=== PATIENT | male | born 1990 | race Caucasian/White ===

== ENCOUNTER 2018-08-27 08:00 | Emergency (ER) | payer BC, OTHER ==
[~2018-08-27] VITALS: Ht 182.9 cm; Wt 86.2 kg
[~2018-08-27 08:00] MED LIST: CARB200T76; FLUD0.1T7 PO; FLUDROCORTISONE; HYDR1TAB8 OP; LNS30CCR PO; ONDAN4ODT PO; SUCR1TAB
--- OUTSIDE RECORDS SUMMARY | 2018-08-27 08:09 | XMS REPORT | Continuity of Care Document ---
Author Organization Unknown Address Unknown Allergies There is no data. Medications There is no data. 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 05/08/2008 ROSALBA DUENAS APRN 817.0 MULTIPLE CLOSED FRACTURES OF HAND BONES 05/09/2008 ROSALBA DUENAS APRN 791.0 PROTEINURIA 05/16/2008 ROSALBA DUENAS APRN 309.4 AD ADJ D/O W DIST OF EMOT 10/12/2008 ROSALBA DUENAS APRN 729.82 muscle cramps in the thigh (upper leg) 10/12/2008 ROSALBA DUENAS APRN 842.13 FINGER SPRAIN RIGHT MIDDLE FINGER PIP 10/20/2008 ROSALBA DUENAS APRN 816.00 CLOSED FRACTURE OF PHALANX OR PHALANGES OF HAND UNSPECIFIED 12/06/2008 ROSALBA DUENAS APRN V70.3 SPORTS/SCHOOL EXAM 03/14/2009 ROSALBA DUENAS APRN 530.81 ESOPHAGEAL REFLUX 03/14/2009 ROSALBA DUENAS APRN 787.03 vomiting 09/10/2009 ROSALBA DUENAS APRN 462 PHARYNGITIS ACUTE 11/06/2009 ROSALBA DUENAS APRN 719.46 joint pain, localized in the knee 11/21/2009 ROSALBA DUENAS APRN V03.89 NEED FOR OTHER SPECIFIED PROPHYLACTIC VACCINATIONS AND INOCULATIONS AGAINST SINGLE BACTERIAL DISEASES 11/21/2009 ROSALBA DUENAS APRN V05.3 HEPATITIS VIRAL/ALL 11/21/2009 ROSALBA DUENAS APRN V06.5 DT, TETANUS-DIPHTHERIA [Td] ,TDAP 11/21/2009 ROSALBA DUENAS APRN V20.2 WELL CHILD, ROUTINE 11/22/2009 ROSALBA DUENAS APRN 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 Results There is no data. Encounters ACCT No. Visit Date/Time Discharge Status Pt. Type Provider Facility Loc./Unit Complaint [id number] 03/28/2013 11:25:00 03/28/2013 23:59:59 CLS Outpatient ROSALBA DUENAS APRN
--- OUTSIDE RECORDS SUMMARY | 2018-08-27 08:09 | XMS REPORT ---
Author Author Migration, Doctor Organization [facility] Address Unknown Phone Unavailable Care Team Providers Care Wet Process Technician Name Role Phone Migration, Doctor Unavailable Unavailable PROBLEMS Type Condition ICD9-CM Code [id number] Code Onset Dates Condition Status SNOMED Code Problem Unspecified episodic mood disorder 296.90 Active [id number] ALLERGIES No Information ENCOUNTERS Encounter Location Date Diagnosis [facility] [id number] [place] [phone] Jul, [facility] [id number] [place] [phone] Jul, [facility] [id number] [place] [phone]- [phone] Apr, [facility] [id number] [place] [phone] Apr, [facility] [id number] [place] [address] Mar, [facility] [id number] [place] [address] [phone]- [phone] Mar, [facility] [id number] [place] [address] 270[address]- [address] Jul, [facility] [id number] [place] [address]- [phone] May, [facility] [id number] [place] [phone]- [phone] May, [facility] [id number] [place] [phone] Oct, [facility] [address] [address] August, [facility] [address] [facility] [id number] [place] [address] Feb, [facility] [address] [address] Feb, [facility] [id number] [address] Feb, [facility] [id number] [address] Nov, [facility] [id number] [address] Sep, IMMUNIZATIONS No Known Immunizations SOCIAL HISTORY Never Assessed REASON FOR VISIT [place] [place] VITAL SIGNS MEDICATIONS Medication Instructions Dosage Frequency Start Date End Date Duration Status Omeprazole 20 mg take 1 capsule (20 mg) by oral route once daily before a meal Mar, Active RESULTS No Results PROCEDURES No Known procedures INSTRUCTIONS MEDICATIONS ADMINISTERED No Known Medications
--- NOTE | 2018-08-27 08:25 | ED Chest Pain ---
General Chief Complaint: Upper Extremity Stated Complaint: LEFT SIDE PAIN Nursing Triage Note: PT AMBULATES TO ROOM 10, PT CO OF L SHOULDER PAIN, C/P, SOA AND L SIDED ABD PAIN. PT ANXIOUS. PT STATES STARTED ABOUT 0715. RATES L SHOULDER PAIN 710 ABD 3 Nursing Sepsis Screen: No Definite Risk Source: patient Exam Limitations: no limitations History of Present Illness Date Seen by Provider: August 27, 2018 Time Seen by Provider: 08:06 Initial Comments This 27-year-old young man presents to the emergency room with complaints of pain in the left upper chest near the shoulder and pain in the left abdomen. Pain started this morning when he woke up and then became intense while he was in the shower. His pain is worse in the chest and the upper abdomen with deep inspiration. He denies any urinary symptoms. He is afebrile. He denies nausea , vomiting, diarrhea, or constipation. He has felt lightheaded this morning. He admits to drinking alcohol daily and states quantity is "a couple of beers". He does smoke tobacco but denies any drug use. He reports his pain was 8 out of 10 at its worst and is now 6 out of 10. Patient reports there is some history of early cardiovascular disease in some of his distant family. His brother has Marfan's disease. Patient does not have features of Marfan's. Allergies and Home Medications Allergies Coded Allergies: No Known Drug Allergies (Unverified , 05/31/09) Home Medications No Active Prescriptions or Reported Meds Patient Home Medication List Home Medication List Reviewed: Yes Review of Systems Review of Systems Constitutional: no symptoms reported EENTM: No Symptoms Reported Respiratory: See HPI Cardiovascular: See HPI Gastrointestinal: See HPI Genitourinary: No Symptoms Reported Musculoskeletal: no symptoms reported Skin: no symptoms reported Psychiatric/Neurological: No Symptoms Reported Endocrine: No Symptoms Reported Hematologic/Lymphatic: No Symptoms Reported Past Piqiwqv-Zndlxv-Vzgqpy Hx Past Med/Social Hx: Reviewed and Corrections made Patient Social History Alcohol Use: Regular Use Number of Drinks Today: 0 Alcohol Beverage of Choice: Beer Recreational Drug Use: No Smoking Status: Current Everyday Smoker Type Used: Cigarettes Recent Foreign Travel: No Contact w/Someone Who Travel: No Recent Infectious Disease Expo: No Recent Hopitalizations: No (RSV at 8 mos., gastroenteritis, diarrhea 05/30/09) Past Medical History Surgeries: Yes (L KNEE ARTHOSCOPY, L INGUINAL HERNIA REPAIR) Respiratory: No Cardiac: No Neurological: No Reproductive Disorders: No Sexually Transmitted Disease: No HIV/AIDS: No Genitourinary: No Gastrointestinal: Yes Gastroesophageal Reflux Musculoskeletal: No Endocrine: No HEENT: No Cancer: No Psychosocial: No Blood Disorders: No Family Medical History Reviewed and Corrections made No Pertinent Family Hx, Heart Disease (distant family members), Other Conditions /Hx (Marfan's syndrome in his brother) Physical Exam Vital Signs Vital Signs - First Documented 08/27/18 08:05 Temp 97.5 Pulse 70 Resp 16 B/P (MAP) 143/99 (114) Pulse Ox 98 Capillary Refill : Less Than 3 Seconds Height, Weight, BMI Height: 6'" Weight: 190lbs. oz. 86.795418jo; BMI Method:Stated General Appearance: No Apparent Distress, WD/WN HEENT: PERRL/EOMI, Normal ENT Inspection Neck: Normal Inspection Respiratory: Lungs Clear, Normal Breath Sounds, No Accessory Muscle Use, No Respiratory Distress, Other (tenderness to palpation just inferior to the distal scapula) Cardiovascular: Regular Rate, Rhythm, No Edema, No Murmur Gastrointestinal: Normal Bowel Sounds, Non Tender, Soft Extremity: Normal Inspection, Non Tender, No Calf Tenderness, No Pedal Edema, Other (negative Deonna) Neurologic/Psychiatric: Alert, Oriented x3, No Motor/Sensory Deficits, Normal Mood/Affect, psychiatric aides teacher II-XII Norm as Tested Skin: Normal Color, Warm/Dry Progress/Results/Core Measures Results/Orders Lab Results Laboratory Tests Test 08/27/18 08:26 08/27/18 09:20 Range/Units White Blood Count 6.4 4.3-11.0 10^3/uL Red Blood Count 5.11 4.35-5.85 10^6/uL Hemoglobin 16.6 13.3-17.7 G/DL Hematocrit 47 40-54 % Mean Corpuscular Volume 92 80-99 FL Mean Corpuscular Hemoglobin 33 25-34 PG Mean Corpuscular Hemoglobin Concent 35 32-36 G/DL Red Cell Distribution Width 12.8 10.0-14.5 % Platelet Count 141 130-400 10^3/uL Mean Platelet Volume 10.0 7.4-10.4 FL Neutrophils (%) (Auto) 53 42-75 % Lymphocytes (%) (Auto) 30 12-44 % Monocytes (%) (Auto) 11 0-12 % Eosinophils (%) (Auto) 5 0-10 % Basophils (%) (Auto) 1 0-10 % Neutrophils # (Auto) 3.4 1.8-7.8 X 10^3 Lymphocytes # (Auto) 2.0 1.0-4.0 X 10^3 Monocytes # (Auto) 0.7 0.0-1.0 X 10^3 Eosinophils # (Auto) 0.3 0.0-0.3 10^3/uL Basophils # (Auto) 0.0 0.0-0.1 10^3/uL Prothrombin Time 12.8 12.2-14.7 SEC INR Comment 0.9 0.8-1.4 Activated Partial Thromboplast Time 27 24-35 SEC D-Dimer < 0.27 0.00-0.49 UG/ML Sodium Level 140 135-145 MMOL/L Potassium Level 4.0 3.6-5.0 MMOL/L Chloride Level 107 98-107 MMOL/L Carbon Dioxide Level 23 21-32 MMOL/L Anion Gap 10 5-14 MMOL/L Blood Urea Nitrogen 15 7-18 MG/DL Creatinine 1.04 0.60-1.30 MG/DL Estimat Glomerular Filtration Rate > 60 BUN/Creatinine Ratio 14 Glucose Level 96 70-105 MG/DL Calcium Level 9.7 8.5-10.1 MG/DL Corrected Calcium 8.5-10.1 MG/DL Magnesium Level 2.4 1.8-2.4 MG/DL Total Bilirubin 0.6 0.1-1.0 MG/DL Aspartate Amino Transf (AST/SGOT) 75 H 5-34 U/L Alanine Aminotransferase (ALT/SGPT) 125 H 0-55 U/L Alkaline Phosphatase 75 40-136 U/L Myoglobin 59.5 10.0-92.0 NG/ML Troponin I < 0.028 <0.028 NG/ML Total Protein 7.5 6.4-8.2 GM/DL Albumin 4.8 H 3.2-4.5 GM/DL Lipase 14 8-78 U/L Serum Alcohol < 10 <10 MG/DL Urine Color YELLOW Urine Clarity CLEAR Urine pH 7 5-9 Urine Specific [place] 1.015 L 1.016-1.022 Urine Protein NEGATIVE NEGATIVE Urine Glucose (UA) NEGATIVE NEGATIVE Urine Ketones NEGATIVE NEGATIVE Urine Nitrite NEGATIVE NEGATIVE Urine Bilirubin NEGATIVE NEGATIVE Urine Urobilinogen NORMAL NORMAL MG/DL Urine Leukocyte Esterase 1+ H NEGATIVE Urine RBC (Auto) NEGATIVE NEGATIVE Urine RBC RARE /HPF Urine WBC 2-5 /HPF Urine Squamous Epithelial Cells NONE /HPF Urine Crystals NONE /LPF Urine Bacteria NEGATIVE /HPF Urine Casts NONE /LPF Urine Mucus NEGATIVE /LPF Urine Culture Indicated NO Urine Opiates Screen NEGATIVE NEGATIVE Urine Oxycodone Screen NEGATIVE NEGATIVE Urine Methadone Screen NEGATIVE NEGATIVE Urine Propoxyphene Screen NEGATIVE NEGATIVE Urine Barbiturates Screen NEGATIVE NEGATIVE Ur Tricyclic Antidepressants Screen NEGATIVE NEGATIVE Urine Phencyclidine Screen NEGATIVE NEGATIVE Urine Amphetamines Screen NEGATIVE NEGATIVE Urine Methamphetamines Screen NEGATIVE NEGATIVE Urine Benzodiazepines Screen NEGATIVE NEGATIVE Urine Cocaine Screen NEGATIVE NEGATIVE Urine Cannabinoids Screen NEGATIVE NEGATIVE My Orders Orders - FREDY DEMARCO MD Cbc With Automated Diff (08/27/18 08:19) Magnesium (08/27/18 08:19) Ekg Tracing (08/27/18 08:19) Cardiac Profile 1 (08/27/18 08:19) Comprehensive Metabolic Panel (08/27/18 08:19) Myoglobin Serum (08/27/18 08:19) Protime With Inr (08/27/18 08:19) Partial Thromboplastin Time (08/27/18 08:19) O2 (08/27/18 08:19) Monitor-Rhythm Ecg Trace Only (08/27/18 08:19) Lipid Panel (08/28/18 06:00) Ed Iv/Invasive Line Start (08/27/18 08:19) Fibrin Degradation Products (08/27/18 08:19) Lipase (08/27/18 08:19) Chest Pa/Lat (2 View) (08/27/18 08:19) Alcohol (08/27/18 08:25) Drug Screen Stat (Urine) (08/27/18 08:25) Urinalysis (08/27/18 09:20) Vital Signs/I&O 08/27/18 08:05 Temp 97.5 Pulse 70 Resp 16 B/P (MAP) 143/99 (114) Pulse Ox 98 Blood Pressure Mean: 114 Progress Progress Note #1: Time: 09:24 Progress Note Patient reports being pain-free at this time. Workup has been unremarkable. UA is pending. Progress Note #2: Time: 10:03 Progress Note Workup was unremarkable. Patient was pain-free at discharge. I did discuss the slight elevation in transaminases which may be related to daily alcohol use. Patient drinks an average of about 3 beers per day per his report. I encouraged him to discontinue drinking alcohol and to follow up with primary care provider soon as possible. See discharge instructions. Initial ECG Impression Date: August 27, 2018 Initial ECG Impression Time: 08:27 Initial ECG Rate: 63 Initial ECG Rhythm: Normal Sinus Initial ECG Intervals: Normal Initial ECG Impression: Normal Comment Early repolarization suggestive of juvenile pattern. No ST elevation or depression. No abnormal intervals or axis deviation. Diagnostic Imaging Diagonstic Imaging: Xray Plain Films/CT/US/NM/MRI: chest Comments Chest x-ray viewed by me and report reviewed. See report below: NAME: TORREY DANIELLE MED REC#: [id number] PT STATUS: REG ER : 1990 PHYSICIAN: FREDY DEMARCO MD ADMIT DATE: 08/27/18/ER Draft Date of Exam:08/27/18 CHEST PA/LAT (2 VIEW) INDICATION: Pain COMPARISON: 09/04/2011 TECHNIQUE: Two radiographs of the chest dated 08/27/2018 FINDINGS: The cardiac silhouette and pulmonary vasculature are within normal limits. The lungs are clear. No pleural effusion. No pneumothorax. No acute osseous abnormality. IMPRESSION: Unremarkable examination without acute cardiopulmonary abnormality. Dictated on workstation # [id number] Dict: 08/27/18 0841 Trans: 08/27/18 0845 [facility] [id number] Interpreted by: BRANT GERBER MD Departure Impression Primary Impression: Chest pain Qualified Codes: R07.9 - Chest pain, unspecified Additional Impression: Left sided abdominal pain of unknown cause Disposition: 01 HOME, SELF-CARE Condition: Improved Departure-Patient Inst. Decision time for Depature: 09:47 Referrals: MARLIN IRIZARRY MD (PCP/Family) Primary Care Physician Patient Instructions: Acute Abdomen (Belly Pain), Chest Pain Add. Discharge Instructions: Return to the emergency room if you have recurrent or worsening symptoms. Follow-up with a primary care provider soon as possible. You have a minimal elevation in your liver markers today. Please discuss this with your primary care provider and have your liver markers checked again sometime in the next couple months. Avoid things that irritate the stomach and the liver such as alcohol. All discharge instructions reviewed with patient and/or family. Voiced understanding. Scripts No Active Prescriptions or Reported Meds Work/School Note: Work Release Form Date Seen in the Emergency Department: August 27, 2018 Return to Work: August 27, 2018 Other Restrictions Listed Below: Stop activities that cause chest pain FREDY DEMARCO MD August 27, 2018 08:25
[2018-08-27 08:33] LABS: BASOPHILS % (AUTO) 1 % (0-10); EOSINOPHILS # (AUTO) 0.3 10^3/uL (0.0-0.3); EOSINOPHILS % (AUTO) 5 % (0-10); HEMATOCRIT 47 % (40-54); HEMOGLOBIN 16.6 G/DL (13.3-17.7); LYMPHOCYTES % (AUTO) 30 % (12-44); MEAN CORPUSCULAR HEMOGLOBIN 33 PG (25-34); MEAN CORPUSCULAR HGB CONC 35 G/DL (32-36); MEAN CORPUSCULAR VOLUME 92 FL (80-99); MONOCYTES # (AUTO) 0.7 X 10^3 (0.0-1.0); MONOCYTES % (AUTO) 11 % (0-12); NEUTROPHILS # (AUTO) 3.4 X 10^3 (1.8-7.8); NEUTROPHILS % (AUTO) 53 % (42-75); PLATELET COUNT 141 10^3/uL (130-400); RED CELL DISTRIBUTION WIDTH 12.8 % (10.0-14.5); WHITE BLOOD COUNT 6.4 10^3/uL (4.3-11.0)
--- NOTE | 2018-08-27 08:46 | Diagnostic Imaging Report ---
INDICATION: Pain COMPARISON: 09/04/2011 TECHNIQUE: Two radiographs of the chest dated 08/27/2018 FINDINGS: The cardiac silhouette and pulmonary vasculature are within normal limits. The lungs are clear. No pleural effusion. No pneumothorax. No acute osseous abnormality. IMPRESSION: Unremarkable examination without acute cardiopulmonary abnormality. Dictated by: Dictated on workstation # [id number]
[2018-08-27 08:49] LABS: INR 0.9 (0.8-1.4); PROTHROMBIN TIME PATIENT 12.8 SEC (12.2-14.7)
[2018-08-27 08:54] LABS: ALANINE AMINOTRANSFERASE 125 U/L (0-55); ALBUMIN 4.8 GM/DL (3.2-4.5); ALKALINE PHOSPHATASE 75 U/L (40-136); BILIRUBIN,TOTAL 0.6 MG/DL (0.1-1.0); BUN/CREATININE RATIO 14; CALCIUM 9.7 MG/DL (8.5-10.1); CARBON DIOXIDE 23 MMOL/L (21-32); CHLORIDE 107 MMOL/L (98-107); CREATININE SERUM 1.04 MG/DL (0.60-1.30); GFR ESTIMATED > 60; GLUCOSE 96 MG/DL (70-105); MAGNESIUM 2.4 MG/DL (1.8-2.4); SODIUM 140 MMOL/L (135-145); TOTAL PROTEIN 7.5 GM/DL (6.4-8.2)
[2018-08-27 09:03] LABS: LIPASE 14 U/L (8-78)
[2018-08-27 09:30] LABS: BILIRUBIN,URINE NEGATIVE (NEGATIVE); CLARITY,URINE CLEAR; COLOR,URINE YELLOW; GLUCOSE, URINE (UA) NEGATIVE (NEGATIVE); KETONES,URINE NEGATIVE (NEGATIVE); LEUKOCYTE ESTERASE ,URINE 1+ (NEGATIVE); NITRITE,URINE NEGATIVE (NEGATIVE); PH,URINE 7 (5-9); PROTEIN,URINE NEGATIVE (NEGATIVE); UROBILINOGEN,URINE NORMAL (NORMAL)
[2018-08-27 09:36] LABS: BACTERIA,URINE NEGATIVE /HPF; RBC,URINE RARE /HPF
[2018-08-27 09:41] LABS: AMPHETAMINE SCREEN, URINE NEGATIVE (NEGATIVE); BARBITURATE SCREEN URINE NEGATIVE (NEGATIVE); BENZODIAZEPINES SCREEN URINE NEGATIVE (NEGATIVE); CANNABINOID SCREEN, URINE NEGATIVE (NEGATIVE); COCAINE SCREEN URINE NEGATIVE (NEGATIVE); METHADONE STAT NEGATIVE (NEGATIVE); METHAMPHETAMINE SCREEN URINE S NEGATIVE (NEGATIVE); OPIATE SCREEN URINE NEGATIVE (NEGATIVE); OXYCODONE STAT NEGATIVE (NEGATIVE); PROPOXYPHENE STAT NEGATIVE (NEGATIVE); TRICYCLIC ANTIDEPRESSANTS SCRE NEGATIVE (NEGATIVE)
[2018-08-27 10:20] VITALS: BP 112/71
== END 2018-08-27 10:20 | disposition home or self-care (01) ==
LOC: EDUNIT# 08:00 → ER 08:01
DX: R07.81 Pleurodynia (principal); R10.12 Left upper quadrant pain; K21.9 Gastro-esophageal reflux disease without esophagitis; F17.210 Nicotine dependence, cigarettes, uncomplicated; Z82.49 Family history of ischemic heart disease and other diseases of the circulatory system; Z98.890 Other specified postprocedural states
CPT/HCPCS: 36415; 71046; 80053; 80306; 80320; 81000; 83690; 83735; 83874; 84484; 85025; 85379; 85610; 85730; 93005; 93041

== ENCOUNTER 2020-07-29 21:18 | Day surgery (SDC) | payer BC ==
[~2020-07-29] VITALS: Ht 182.9 cm; Wt 95.3 kg
[2020-07-29 22:08] LABS: BASOPHILS # (AUTO) 0.1 10^3/uL (0.0-0.1); BASOPHILS % (AUTO) 0 % (0-10); EOSINOPHILS # (AUTO) 0.1 10^3/uL (0.0-0.3); EOSINOPHILS % (AUTO) 0 % (0-10); HEMATOCRIT 48 % (40-54); HEMOGLOBIN 16.7 g/dL (13.3-17.7); LYMPHOCYTES # (AUTO) 1.7 10^3/uL (1.0-4.0); LYMPHOCYTES % (AUTO) 11 % (12-44); MEAN CORPUSCULAR HEMOGLOBIN 32 pg (25-34); MEAN CORPUSCULAR HGB CONC 35 g/dL (32-36); MEAN CORPUSCULAR VOLUME 91 fL (80-99); MEAN PLATELET VOLUME 10.1 fL (9.0-12.2); MONOCYTES # (AUTO) 1.4 10^3/uL (0.0-1.0); MONOCYTES % (AUTO) 9 % (0-12); NEUTROPHILS # (AUTO) 12.3 10^3/uL (1.8-7.8); NEUTROPHILS % (AUTO) 79 % (42-75); PLATELET COUNT 183 10^3/uL (130-400); WHITE BLOOD COUNT 15.5 10^3/uL (4.3-11.0)
[2020-07-29 22:13] LABS: BILIRUBIN,URINE NEGATIVE (NEGATIVE); CLARITY,URINE CLEAR; COLOR,URINE YELLOW; GLUCOSE, URINE (UA) NEGATIVE (NEGATIVE); KETONES,URINE 1+ (NEGATIVE); LEUKOCYTE ESTERASE ,URINE NEGATIVE (NEGATIVE); NITRITE,URINE NEGATIVE (NEGATIVE); PROTEIN,URINE NEGATIVE (NEGATIVE)
[2020-07-29] MEDS ORDERED: LACTATED RINGERS 1,000 ML IV ONE (22:15)
[2020-07-29 22:18] LABS: AMORPHOUS SEDIMENT,UR FEW AMOR PHOSPHATE /LPF; BACTERIA,URINE NEGATIVE /HPF; RBC,URINE RARE /HPF; SQUAMOUS EPITHELIAL CELL,UR RARE /HPF; WBC,URINE RARE /HPF
[2020-07-29 22:22] LABS: ALANINE AMINOTRANSFERASE 33 U/L (0-55); ALBUMIN 4.7 GM/DL (3.2-4.5); ALKALINE PHOSPHATASE 65 U/L (40-136); AMYLASE 39 U/L (25-125); BILIRUBIN,TOTAL 0.9 MG/DL (0.1-1.0); BUN/CREATININE RATIO 11; CALCIUM 9.5 MG/DL (8.5-10.1); CARBON DIOXIDE 23 MMOL/L (21-32); CHLORIDE 102 MMOL/L (98-107); CREATININE SERUM 1.03 MG/DL (0.60-1.30); GFR ESTIMATED > 60; GLUCOSE 119 MG/DL (70-105); LIPASE 12 U/L (8-78); POTASSIUM 3.8 MMOL/L (3.6-5.0); SODIUM 139 MMOL/L (135-145); TOTAL PROTEIN 7.5 GM/DL (6.4-8.2)
[2020-07-29 22:27] LABS: AMPHETAMINE SCREEN, URINE NEGATIVE (NEGATIVE); BARBITURATE SCREEN URINE NEGATIVE (NEGATIVE); BENZODIAZEPINES SCREEN URINE NEGATIVE (NEGATIVE); CANNABINOID SCREEN, URINE POSITIVE (NEGATIVE); COCAINE SCREEN URINE NEGATIVE (NEGATIVE); METHADONE STAT NEGATIVE (NEGATIVE); METHAMPHETAMINE SCREEN URINE S NEGATIVE (NEGATIVE); OPIATE SCREEN URINE NEGATIVE (NEGATIVE); OXYCODONE STAT NEGATIVE (NEGATIVE); PROPOXYPHENE STAT NEGATIVE (NEGATIVE); TRICYCLIC ANTIDEPRESSANTS SCRE NEGATIVE (NEGATIVE)
[2020-07-29 22:27] LABS: BAND NEUTROPHILS 4 %; LYMPHOCYTES % (MANUAL) 7 %; MONOCYTES % (MANUAL) 12 %; NEUTROPHILS % (MANUAL) 77 %; RBC MORPH NORMAL
[2020-07-29] MEDS ORDERED: IOHEXOL 350 MG/ML 100 ML (OMNIPAQUE 350) VIAL IV ONE (23:00)
[2020-07-29] MEDS ORDERED: NS 100 ML (IVPB) BAG IV ONE (23:00)
[2020-07-30] VITALS (10 sets, daily range): BP systolic 116–150; BP diastolic 68–87
[2020-07-30] MEDS ORDERED: fentaNYL INJ 100 MCG/2 ML AMP IVP ONE
[2020-07-30] MEDS ORDERED: PIPERACILLIN SODIUM/TAZOBACTAM 4.5 GM in NS (IVPB) 100 ML IV ONE (00:15)
[2020-07-30] MEDS ORDERED: PIPERACILLIN/TAZO 4.5 GM VIAL (ZOSYN) IV ONE (01:35)
[2020-07-30] MEDS ORDERED: NS (IVPB) 100 ML ONE (01:35)
--- NOTE | 2020-07-30 01:39 | ED Abdominal Pain ---
General Chief Complaint: Abdominal/GI Problems Stated Complaint: APPENDICITIS Nursing Triage Note: TO ED VIA POV AND AMBULATORY TO ROOM 7 WITH C/O RLQ ABD PAIN SINCE 1400 TODAY, VOMITING. Sepsis Screen: No Definite Risk Source of Information: Patient History of Present Illness Date Seen by Provider: Jul 29, 2020 Time Seen by Provider: 22:00 Initial Comments PT ARRIVES VIA POV FROM HOME C/O RLQ PAIN SINCE 1400 TODAY, WHILE AT AN [employer] HAS HAD NAUSEA AND VOMITED X 3 HAD LOOSE BM X 1 TODAY NO FEVER HAS HAD A LITTLE DIFFICULTY URINATING --HAS SOME URGENCY, HAS SOME HESITANCY AND VOIDING SMALLER AMOUNTS THAN NORMAL NO RADIATION OF PAIN PAIN IS WORSE WITH STANDING AND WALKING, AND WITH BUMPS IN THE ROAD ON THE DRIVE HERE NO HISTORY OF SIMILAR HAS HAD INGUINAL HERNIA REPAIR OTHERWISE NO OTHER ABDOMINAL SURGERIES HAS NOT TAKEN ANYTHING FOR PAIN ATE BREAKFAST THIS MORNING, HAD A LITTLE BIT OF [place]Y AT 1600. NO OTHER COVID-19 SYMPTOMS AND NO KNOWN SICK CONTACTS OR KNOWN EXPOSURE TO COVID-19 PCP: NONE--GOES TO [facility] FOR ALL MEDICAL CARE Allergies and Home Medications Allergies Coded Allergies: No Known Drug Allergies (Unverified , 05/31/09) Home Medications No Active Prescriptions or Reported Meds Patient Home Medication List Home Medication List Reviewed: Yes Review of Systems Review of Systems Constitutional: no symptoms reported; No fever EENTM: No Symptoms Reported Respiratory: No Symptoms Reported Cardiovascular: No Symptoms Reported Gastrointestinal: See HPI, Abdominal Pain; Denies Constipated; Diarrhea, Nausea, Poor Appetite, Vomiting Genitourinary: See HPI Musculoskeletal: no symptoms reported; No back pain Skin: no symptoms reported Psychiatric/Neurological: No Symptoms Reported Endocrine: No Symptoms Reported Hematologic/Lymphatic: No Symptoms Reported Past Wkrnbua-Tfeadj-Jmxedx Hx Past Med/Social Hx: Reviewed and Corrections made Patient Social History Alcohol Use: Regular Use (ALMOST DAILY) Number of Drinks Today: AA Alcohol Beverage of Choice: Beer Drug of Choice: MARIJUANA Smoking Status: Former Smoker (STILL CHEWS TOBACCO) Type Used: Cigarettes, Smokeless Tobacco Recent Infectious Disease Expo: No Recent Hopitalizations: No (RSV at 8 mos., gastroenteritis, diarrhea 05/30/09) Have you traveled recently?: No Alcohol Use?: No Past Medical History Surgeries: Yes (L KNEE ARTHOSCOPY, L INGUINAL HERNIA REPAIR) Abdominal, Orthopedic, Vasectomy Respiratory: No Cardiac: No Neurological: No Reproductive Disorders: No Sexually Transmitted Disease: No HIV/AIDS: No Genitourinary: No Gastrointestinal: Yes (INGUINAL HERNIA REPAIR) Gastroesophageal Reflux Musculoskeletal: Yes (KNEE SCOPE) Endocrine: No HEENT: No Cancer: No Psychosocial: No Integumentary: No Blood Disorders: No Family Medical History No Pertinent Family Hx, Heart Disease, Other Conditions/Hx Physical Exam Vital Signs Vital Signs - First Documented 07/29/20 21:41 Temp 37.3 Pulse 70 Resp 20 B/P (MAP) 138/86 (103) O2 Delivery Room Air Capillary Refill : Less Than 3 Seconds Height/Weight/BMI Height: 6'" Weight: 190lbs. oz. 86.078059sc; 28.48 BMI Method:Stated General Appearance: WD/WN, no apparent distress, other (WALKS UPRIGHT, LAYING OUTSTRETCHED WITH ARMS OVER HEAD AND LEGS CROSSED AT ANKLES. DOES NOT APPEAR TO BE IN ANY DISCOMFORT OR DISTRESS. ) Neck: normal inspection Respiratory: normal breath sounds, no respiratory distress, no accessory muscle use Cardiovascular: regular rate, rhythm, no murmur Gastrointestinal: normal bowel sounds, soft, no organomegaly, no pulsatile mass; No distended; guarding (RLQ); No rebound; tenderness (MARKED RLQ AND RIGHT MID ABDOMEN TENDERNESS); No hernia, No mass; other (NEGATIVE ROVSING'S, NEGATIVE PSOAS, NEGATIVE OBTURATOR) Extremities: normal inspection Back: normal inspection, no CVA tenderness Neurologic/Psychiatric: travel nurse II-XII nml as tested, no motor/sensory deficits, alert, oriented x 3, other (SOMEWHAT ANXIOUS) Skin: normal color, warm/dry; No rash Progress/Results/Core Measures Results/Orders Lab Results Laboratory Tests Test 07/29/20 21:55 07/29/20 22:05 Range/Units White Blood Count 15.5 H 4.3-11.0 10^3/uL Red Blood Count 5.26 4.30-5.52 10^6/uL Hemoglobin 16.7 13.3-17.7 g/dL Hematocrit 48 40-54 % Mean Corpuscular Volume 91 80-99 fL Mean Corpuscular Hemoglobin 32 25-34 pg Mean Corpuscular Hemoglobin Concent 35 32-36 g/dL Red Cell Distribution Width 11.9 10.0-14.5 % Platelet Count 183 130-400 10^3/uL Mean Platelet Volume 10.1 9.0-12.2 fL Immature Granulocyte % (Auto) 1 % Neutrophils (%) (Auto) 79 H 42-75 % Lymphocytes (%) (Auto) 11 L 12-44 % Monocytes (%) (Auto) 9 0-12 % Eosinophils (%) (Auto) 0 0-10 % Basophils (%) (Auto) 0 0-10 % Neutrophils # (Auto) 12.3 H 1.8-7.8 10^3/uL Lymphocytes # (Auto) 1.7 1.0-4.0 10^3/uL Monocytes # (Auto) 1.4 H 0.0-1.0 10^3/uL Eosinophils # (Auto) 0.1 0.0-0.3 10^3/uL Basophils # (Auto) 0.1 0.0-0.1 10^3/uL Immature Granulocyte # (Auto) 0.1 0.0-0.1 10^3/uL Neutrophils % (Manual) 77 % Lymphocytes % (Manual) 7 % Monocytes % (Manual) 12 % Band Neutrophils 4 % Blood Morphology Comment NORMAL Sodium Level 139 135-145 MMOL/L Potassium Level 3.8 3.6-5.0 MMOL/L Chloride Level 102 98-107 MMOL/L Carbon Dioxide Level 23 21-32 MMOL/L Anion Gap 14 5-14 MMOL/L Blood Urea Nitrogen 11 7-18 MG/DL Creatinine 1.03 0.60-1.30 MG/DL Estimat Glomerular Filtration Rate > 60 BUN/Creatinine Ratio 11 Glucose Level 119 H 70-105 MG/DL Calcium Level 9.5 8.5-10.1 MG/DL Corrected Calcium 8.5-10.1 MG/DL Total Bilirubin 0.9 0.1-1.0 MG/DL Aspartate Amino Transf (AST/SGOT) 24 5-34 U/L Alanine Aminotransferase (ALT/SGPT) 33 0-55 U/L Alkaline Phosphatase 65 40-136 U/L Total Protein 7.5 6.4-8.2 GM/DL Albumin 4.7 H 3.2-4.5 GM/DL Amylase Level 39 25-125 U/L Lipase 12 8-78 U/L Urine Color YELLOW Urine Clarity CLEAR Urine pH 7.0 5-9 Urine Specific Weiser 1.020 1.016-1.022 Urine Protein NEGATIVE NEGATIVE Urine Glucose (UA) NEGATIVE NEGATIVE Urine Ketones 1+ H NEGATIVE Urine Nitrite NEGATIVE NEGATIVE Urine Bilirubin NEGATIVE NEGATIVE Urine Urobilinogen 1.0 < = 1.0 MG/DL Urine Leukocyte Esterase NEGATIVE NEGATIVE Urine RBC (Auto) NEGATIVE NEGATIVE Urine RBC RARE /HPF Urine WBC RARE /HPF Urine Squamous Epithelial Cells RARE /HPF Urine Crystals PRESENT H /LPF Urine Amorphous Sediment FEW MIR PHOSPHATE H /LPF Urine Bacteria NEGATIVE /HPF Urine Casts NONE /LPF Urine Mucus MODERATE H /LPF Urine Culture Indicated NO Urine Opiates Screen NEGATIVE NEGATIVE Urine Oxycodone Screen NEGATIVE NEGATIVE Urine Methadone Screen NEGATIVE NEGATIVE Urine Propoxyphene Screen NEGATIVE NEGATIVE Urine Barbiturates Screen NEGATIVE NEGATIVE Ur Tricyclic Antidepressants Screen NEGATIVE NEGATIVE Urine Phencyclidine Screen NEGATIVE NEGATIVE Urine Amphetamines Screen NEGATIVE NEGATIVE Urine Methamphetamines Screen NEGATIVE NEGATIVE Urine Benzodiazepines Screen NEGATIVE NEGATIVE Urine Cocaine Screen NEGATIVE NEGATIVE Urine Cannabinoids Screen POSITIVE H NEGATIVE My Orders Orders - JADE FOURNIER DO Ed Iv/Invasive Line Start (07/29/20 22:01) Amylase (07/29/20 22:01) Cbc With Automated Diff (07/29/20 22:01) Comprehensive Metabolic Panel (07/29/20 22:01) Drug Screen Stat (Urine) (07/29/20 22:01) Lipase (07/29/20 22:01) Ua Culture If Indicated (07/29/20 22:01) Ed Iv/Invasive Line Start (07/29/20 22:01) Ed Iv/Invasive Line Start (07/29/20 22:01) Lactated Ringers (Lr 1000 Ml Iv Solution (07/29/20 22:15) Manual Differential (07/29/20 21:55) Ct Abd/Pelv W (Appendicitis) (07/29/20 22:20) Iohexol Injection (Omnipaque 350 Mg/Ml 1 (07/29/20 23:00) Ns (Ivpb) (Sodium Chloride 0.9% Ivpb Bag (07/29/20 23:00) Fentanyl Inj (Sublimaze Injection) (07/30/20 00:00) Medications Given in ED Current Medications Medications Dose Ordered Sig/Kathy Route Start Time Stop Time Status Last Admin Dose Admin Fentanyl Citrate 50 mcg ONCE ONCE IVP 07/30/20 00:00 07/30/20 00:01 DC 07/30/20 00:09 50 MCG Iohexol 100 ml ONCE ONCE IV 07/29/20 23:00 07/29/20 23:01 DC 07/29/20 22:59 100 ML Lactated Ringer's 1,000 ml @ 0 mls/hr Q0M ONCE IV 07/29/20 22:15 07/29/20 22:16 DC 07/29/20 22:06 0 MLS/HR Sodium Chloride 80 ml ONCE ONCE IV 07/29/20 23:00 07/29/20 23:01 DC 07/29/20 22:59 80 ML Vital Signs/I&O 07/29/20 21:41 Temp 37.3 Pulse 70 Resp 20 B/P (MAP) 138/86 (103) O2 Delivery Room Air 07/30/20 00:00 Intake Total 1000 ml Balance 1000 ml Blood Pressure Mean: 103 Progress Progress Note : Progress Note GIVEN IV FLUIDS, ZOFRAN AND FENTANYL WITH IMPROVEMENT IN SYMPTOMS NO DETERIORATION IN PT'S CONDITION DURING ER STAY Diagnostic Imaging Comments CT ABDOMEN / PELVIS--+ APPENDICITIS, PER [facility] VIA FAX AT [id number] Reviewed: Reviewed by Ks Departure Communication (Admissions) [id number]--SPOKE WITH DR. COFFMAN, PENDING CT RESULTS. HE IS IN SURGERY AT THIS TIME. WILL CALL HIM BACK WITH RADIOLOGIST REPORT [id number]--MESSAGE TO DR. COFFMAN IN SURGERY. HE ADVISES TO ADMIT PT, GIVE ZOSYN AND HE WILL TAKE PT TO SURGERY IN AM. Impression Primary Impression: Appendicitis Disposition: ADMITTED INPATIENT Condition: Stable Admissions Decision to Admit Reason: Admit from ER (General) Decision to Admit/Date: Jul 30, 2020 Time/Decision to Admit Time: 00:05 Departure-Patient Inst. Referrals: NO,LOCAL PHYSICIAN (PCP) Primary Care Physician Scripts No Active Prescriptions or Reported Meds JADE FOURNIER DO Jul 30, 2020 01:38
[2020-07-30] MEDS ORDERED: D5 1/2 NS W/KCL 20 MEQ/L 1,000 ML IV SCH (01:45)
[2020-07-30] MEDS ORDERED: PIPERACILLIN/TAZO 4.5 GM/NS 100 ML IV ONE ×2 (01:45)
[2020-07-30] MEDS ORDERED: fentaNYL INJ 100 MCG/2 ML AMP IV PRN (01:45)
[2020-07-30] MEDS ORDERED: ONDANSETRON 4 MG/2 ML (SDV) Z0FRAN IV PRN (01:45)
[2020-07-30 05:46] LABS: BASOPHILS % (AUTO) 0 % (0-10); EOSINOPHILS # (AUTO) 0.1 10^3/uL (0.0-0.3); EOSINOPHILS % (AUTO) 1 % (0-10); HEMATOCRIT 43 % (40-54); LYMPHOCYTES # (AUTO) 1.9 10^3/uL (1.0-4.0); LYMPHOCYTES % (AUTO) 15 % (12-44); MEAN CORPUSCULAR HEMOGLOBIN 32 pg (25-34); MEAN CORPUSCULAR HGB CONC 35 g/dL (32-36); MEAN CORPUSCULAR VOLUME 92 fL (80-99); MEAN PLATELET VOLUME 10.4 fL (9.0-12.2); MONOCYTES # (AUTO) 1.5 10^3/uL (0.0-1.0); MONOCYTES % (AUTO) 12 % (0-12); NEUTROPHILS # (AUTO) 8.6 10^3/uL (1.8-7.8); NEUTROPHILS % (AUTO) 71 % (42-75); PLATELET COUNT 190 10^3/uL (130-400); WHITE BLOOD COUNT 12.2 10^3/uL (4.3-11.0)
--- NOTE | 2020-07-30 06:06 | Diagnostic Imaging Report ---
PROCEDURE: CT abdomen and pelvis with contrast, rule out appendicitis. TECHNIQUE: Multiple contiguous axial images were obtained through the abdomen and pelvis after the administration of intravenous contrast. All CT scans use one or more of the following dose optimizing techniques: automated exposure control, MA and/or KvP adjustment based on patient size and exam type or iterative reconstruction. INDICATION: Right lower quadrant abdominal pain. FINDINGS: No hepatic, gallbladder, pancreatic, adrenal gland or splenic lesion is identified. Simple appearing cyst in the inferior pole left kidney reaches 2.3 cm in diameter. Kidneys otherwise unremarkable. There is no evidence of free fluid. There is enlargement of the appendix with surrounding edema and inflammation. No organized fluid collection is identified. Unopacified urinary bladder is unremarkable. IMPRESSION: Acute appendicitis with periappendiceal inflammation. No abscess is identified. Dictated by: Dictated on workstation # [id number]
[2020-07-30 06:10] LABS: ALANINE AMINOTRANSFERASE 25 U/L (0-55); ALKALINE PHOSPHATASE 52 U/L (40-136); BILIRUBIN,TOTAL 1.1 MG/DL (0.1-1.0); BUN/CREATININE RATIO 8; CALCIUM 8.7 MG/DL (8.5-10.1); CARBON DIOXIDE 23 MMOL/L (21-32); CHLORIDE 107 MMOL/L (98-107); CREATININE SERUM 0.95 MG/DL (0.60-1.30); GFR ESTIMATED > 60; GLUCOSE 130 MG/DL (70-105); POTASSIUM 3.7 MMOL/L (3.6-5.0); SODIUM 139 MMOL/L (135-145); TOTAL PROTEIN 6.4 GM/DL (6.4-8.2)
[2020-07-30] MEDS ORDERED: LIDOCAINE/EPI 1%-1:100,000 (XYLOCAINE) 20ML ONE (07:00)
[2020-07-30] MEDS ORDERED: GLYCOPYRROLATE 0.2 MG/ML (ROBINUL) 2 ML VIAL ONE (07:08)
[2020-07-30] MEDS ORDERED: ROCURONIUM 10 MG/ML 5 ML SYRINGE IV ONE (07:08)
[2020-07-30] MEDS ORDERED: LIDOCAINE PF 2% 5 ML (XYLOCAINE) VIAL ONE (07:08)
[2020-07-30] MEDS ORDERED: fentaNYL INJ 100 MCG/2 ML AMP ONE (07:08)
[2020-07-30] MEDS ORDERED: proPOfol 200 MG/20 ML (DIPRIVAN) VIAL IV ONE (07:08)
[2020-07-30] MEDS ORDERED: NEOSTIGMINE 3 MG/3 ML VIAL ONE (07:08)
[2020-07-30] MEDS ORDERED: SEVOFLURANE (ULTANE) 15 ML INHAL SOLN ONE ×2 (07:08→08:31)
[2020-07-30] MEDS ORDERED: ONDANSETRON 4 MG/2 ML (SDV) Z0FRAN ONE (07:08)
[2020-07-30] MEDS ORDERED: MIDAZOLAM 2 MG/2 ML (VERSED) VIAL ONE (07:08)
[2020-07-30] MEDS ORDERED: morphine INJ 10 MG/ML 1ML (SYR OR VIAL) IVP ONE (07:15)
[2020-07-30] MEDS: LACTATED RINGERS 1,000 ML IV PRN ×2 (07:15→08:15)
[2020-07-30] MEDS ORDERED: LACTATED RINGERS 1,000 ML IV PRN (07:15)
[2020-07-30] MEDS ORDERED: ONDANSETRON 4 MG/2 ML (SDV) Z0FRAN IVP PRN (07:15)
[2020-07-30] MEDS ORDERED: HYDROmorphone 2 MG/ML VIAL (DILAUDID) IV ONE (07:15)
--- NOTE | 2020-07-30 07:25 | History & Physical-Surgical ---
History of Present Illness History of Present Illness Reason for visit/HPI CC: RLQ abd pain. 29 year old male with RLQ abdominal pain started yesterday afternoon. Pain is sharp, no radiation. Moderate to severe. Having some nausea and vomiting. Movement makes worse. Laying still makes better. Denies fever sweats chills shortness of breath or chest pain. Ct scan reviewed and consistent with appendicitis. Date of Admission Jul 30, 2020 at 00:05 Date Seen by a Provider: Jul 30, 2020 Time Seen by a Provider: 07:21 I consulted on this patient on 07/30/20 07:19 Attending Physician Girish Mccabe DO Admitting Physician No,Local Physician Consult Allergies and Home Medications Allergies Coded Allergies: No Known Drug Allergies (Unverified , 05/31/09) Home Medications No Active Prescriptions or Reported Meds Patient Home Medication List Home Medication List Reviewed: Yes Past Rsyovom-Hsdiwq-Wvpvyr Hx Patient Social History Number of Drinks Today: AA Drug of Choice: MARIJUANA Smoking Status: Former Smoker (STILL CHEWS TOBACCO) Type Used: Cigarettes, Smokeless Tobacco Recent Hopitalizations: No (RSV at 8 mos., gastroenteritis, diarrhea 05/30/09) Alcohol Use?: No Have you traveled recently?: No Surgeries History of Surgeries: Yes (L KNEE ARTHOSCOPY, L INGUINAL HERNIA REPAIR) Surgeries: Abdominal, Orthopedic, Vasectomy Respiratory History of Respiratory Disorde: No Cardiovascular History of Cardiac Disorders: No Neurological History of Neurological Disord: No Reproductive System Hx Reproductive Disorders: No Sexually Transmitted Disease: No HIV/AIDS: No Genitourinary History of Genitourinary Disor: No Gastrointestinal History of Gastrointestinal Di: Yes (INGUINAL HERNIA REPAIR) Gastrointestinal Disorders: Gastroesophageal Reflux Musculoskeletal History of Musculoskeletal Dis: Yes (KNEE SCOPE) Endocrine History of Endocrine Disorders: No HEENT History of HEENT Disorders: No Cancer History of Cancer: No Psychosocial History of Psychiatric Problem: No Integumentary History of Skin or Integumenta: No Blood Transfusions History of Blood Disorders: No Reviewed Nursing Assessment Reviewed/Agree w Nursing PMH: Yes Family Medical History Significant Family History: No Pertinent Family Hx, Heart Disease, Other Conditions/Hx Review of Systems Constitutional: No chills, No diaphoresis, No weakness EENTM: No blurred vision, No double vision Respiratory: No cough, No dyspnea on exertion Cardiovascular: No chest pain Gastrointestinal: abdominal pain (RLQ), nausea, vomiting Genitourinary: No decreased output, No discharge Musculoskeletal: No back pain, No joint pain Skin: No change in color, No change in hair/nails Psychiatric/Neurological: Denies Anxiety, Denies Depressed, Denies Emotional Problems All Other Systems Reviewed Negative Unless Noted: Yes (Negative excepted noted.) Physical Exam Vital Signs Vital Signs - First Documented 07/29/20 07/30/20 21:41 00:40 Temp 37.3 Pulse 70 Resp 20 B/P (MAP) 138/86 (103) Pulse Ox 97 O2 Delivery Room Air Capillary Refill : Less Than 3 Seconds Height, Weight, BMI Height: 6'" Weight: 190lbs. oz. 86.205047kr; 28.48 BMI Method:Stated General Appearance: No Apparent Distress, WD/WN HEENT: PERRL/EOMI, Normal ENT Inspection Neck: Normal Inspection, Non Tender Respiratory: Chest Non Tender, No Accessory Muscle Use, No Respiratory Distress Cardiovascular: Regular Rate, Rhythm, No JVD Gastrointestinal: Soft, Tenderness (right lower quadrant) Rectal: Deferred Back: Normal Inspection, No CVA Tenderness Extremity: Normal Inspection, Non Tender Neurologic/Psychiatric: Alert, Oriented x3, No Motor/Sensory Deficits, Normal Mood/Affect Skin: Normal Color, Warm/Dry Lymphatic: No Adenopathy Data Review Labs Laboratory Tests 07/29/20 21:55: White Blood Count 15.5H, Red Blood Count 5.26, Hemoglobin 16.7, Hematocrit 48, Mean Corpuscular Volume 91, Mean Corpuscular Hemoglobin 32, Mean Corpuscular Hemoglobin Concent 35, Red Cell Distribution Width 11.9, Platelet Count 183, Mean Platelet Volume 10.1, Immature Granulocyte % (Auto) 1, Neutrophils (%) (Auto) 79H, Lymphocytes (%) (Auto) 11L, Monocytes (%) (Auto) 9, Eosinophils (%) (Auto) 0, Basophils (%) (Auto) 0, Neutrophils # (Auto) 12.3H, Lymphocytes # (Auto) 1.7, Monocytes # (Auto) 1.4H, Eosinophils # (Auto) 0.1, Basophils # (Auto) 0.1, Immature Granulocyte # (Auto) 0.1, Neutrophils % (Manual) 77, Lymphocytes % (Manual) 7, Monocytes % (Manual) 12, Band Neutrophils 4, Blood Morphology Comment NORMAL, Sodium Level 139, Potassium Level 3.8, Chloride Level 102, Carbon Dioxide Level 23, Anion Gap 14, Blood Urea Nitrogen 11, Creatinine 1.03, Estimat Glomerular Filtration Rate > 60, BUN/Creatinine Ratio 11, Glucose Level 119H, Calcium Level 9.5, Corrected Calcium , Total Bilirubin 0.9, Aspartate Amino Transf (AST/SGOT) 24, Alanine Aminotransferase (ALT/SGPT) 33, Alkaline Phosphatase 65, Total Protein 7.5, Albumin 4.7H, Amylase Level 39, Lipase 12 07/29/20 22:05: Urine Color YELLOW, Urine Clarity CLEAR, Urine pH 7.0, Urine Specific Alexander 1.020, Urine Protein NEGATIVE, Urine Glucose (UA) NEGATIVE, Urine Ketones 1+H, Urine Nitrite NEGATIVE, Urine Bilirubin NEGATIVE, Urine Urobilinogen 1.0, Urine Leukocyte Esterase NEGATIVE, Urine RBC (Auto) NEGATIVE, Urine RBC RARE, Urine WBC RARE, Urine Squamous Epithelial Cells RARE, Urine Crystals PRESENTH, Urine Amorphous Sediment FEW MIR PHOSPHATEH, Urine Bacteria NEGATIVE, Urine Casts NONE, Urine Mucus MODERATEH, Urine Culture Indicated NO, Urine Opiates Screen NEGATIVE, Urine Oxycodone Screen NEGATIVE, Urine Methadone Screen NEGATIVE, Urine Propoxyphene Screen NEGATIVE, Urine Barbiturates Screen NEGATIVE, Ur Tricyclic Antidepressants Screen NEGATIVE, Urine Phencyclidine Screen NEGATIVE, Urine Amphetamines Screen NEGATIVE, Urine Methamphetamines Screen NEGATIVE, Urine Benzodiazepines Screen NEGATIVE, Urine Cocaine Screen NEGATIVE, Urine Cannabinoids Screen POSITIVEH 07/30/20 05:32: White Blood Count 12.2H, Red Blood Count 4.68, Hemoglobin 15.0, Hematocrit 43, Mean Corpuscular Volume 92, Mean Corpuscular Hemoglobin 32, Mean Corpuscular Hemoglobin Concent 35, Red Cell Distribution Width 11.9, Platelet Count 190, Mean Platelet Volume 10.4, Immature Granulocyte % (Auto) 0, Neutrophils (%) (Auto) 71, Lymphocytes (%) (Auto) 15, Monocytes (%) (Auto) 12, Eosinophils (%) (Auto) 1, Basophils (%) (Auto) 0, Neutrophils # (Auto) 8.6H, Lymphocytes # (Auto) 1.9, Monocytes # (Auto) 1.5H, Eosinophils # (Auto) 0.1, Basophils # (Auto) 0.0, Immature Granulocyte # (Auto) 0.1, Sodium Level 139, Potassium Level 3.7, Chloride Level 107, Carbon Dioxide Level 23, Anion Gap 9, Blood Urea Nitrogen 8, Creatinine 0.95, Estimat Glomerular Filtration Rate > 60, BUN/Creati nine Ratio 8, Glucose Level 130H, Calcium Level 8.7, Corrected Calcium 8.7, Total Bilirubin 1.1H, Aspartate Amino Transf (AST/SGOT) 16, Alanine Aminotransferase (ALT/SGPT) 25, Alkaline Phosphatase 52, Total Protein 6.4, Albumin 4.0 Assessment/Plan Assessment/Plan Admission Diagonsis rlq abdominal pain acute appendicitis Admission Status: Observation Assessment/Plan rlq abdominal pain acute appendicitis discussed risks and benefits of laparoscopic appendectomy all other indicated procedures he understands risks and benefits and wishes to proceed. To OR On Zosyn NPO IV hydration GIRISH MCCABE DO Jul 30, 2020 07:25
[2020-07-30] MEDS ORDERED: PIPERACILLIN/TAZO 4.5 GM/NS 100 ML IV SCH ×2 (08:00)
[2020-07-30] MEDS ORDERED: MEPERIDINE (DEMEROL) INJ 50 MG/ML ONE (08:13)
[2020-07-30] MEDS ORDERED: HYDROmorphone 2 MG/ML VIAL (DILAUDID) ONE (08:16)
[2020-07-30] MEDS ORDERED: ACHD5005 PO (08:17)
[2020-07-30] MEDS ORDERED: DOCU-143 PO (08:17)
--- NOTE | 2020-07-30 08:18 | Discharge Inst-Simple/Standard ---
Discharge Inst-Standard Discharge Medications New, Converted or Re-Newed RX: RX on Chart Patient Instructions/Follow Up Plan of Care/Instructions/FU: 2-3 weeks Eliot Activity as Tolerated: No Discharge Diet: Regular Diet Other Inst to Patient Follow up Appt: Make appointment for 2-3 weeks. Instructions: No lifting greater than 10 pounds. No strenuous activity. May shower in 24 hours, no tub bath or soaking. Use incentive spirometer at home as directed. No Smoking Skin/Wound Care: You have special glue over your incision that will fall off on it's own. Symptoms to Report: Appetite Changes, Extremity Discoloration, Numbness/Tingling, Swelling Increased, Bleeding Excessive, Eyesight Changes, Pain Increased, Urine Color Change, Constipation(Persistent), Fever over 101 degree F, Pain/Pressure in chest, Urinating Difficulty, Cough Up/Vomit Blood, Heart Beat Irreg/Pounding, Pain/Pressure in jaw, Vaginal Bleeding Increase, Cramps in feet or legs, Lightheadedness, Pain/Pressure in shoulder, Diarrhea(Persistent), Memory Changes Suddenly, Questions/Concerns, Weight gain consecutive days, Dizziness/Fainting, Nausea/Vomiting, Shortness of Breath, Weight gain over 2 pounds If questions or concerns contact your physician Or seek help at emergency department. GIRISH COFFMAN DO Jul 30, 2020 08:18
--- NOTE | 2020-07-30 08:22 | Progress Note-Post Operative ---
Post-Operative Progess Note Surgeon (s)/Nursing Admin (s) Surgeon GIRISH COFFMAN DO Nursing Admin: na Pre-Operative Diagnosis rlq abd pain, acute appendicitis Post-Operative Diagnosis same Procedure & Operative Findings Date of Procedure 07/30/20 Procedure Performed/Findings PROCEDURE: Laparoscopic appendectomy. COMPLICATIONS: None. INDICATIONS: The patient is a 29 year old male who has been having right lower quadrant abdominal pain. Patient's exam consistent with appendicitis. I discussed risk and benefits of laparoscopic appendectomy and all indicated procedures with the possibility being a normal appendix. The patient understands the risks and benefits and wishes to proceed. Consent was signed on the chart. DESCRIPTION OF PROCEDURE: The patient was taken to the operating suite, prepped and draped in a sterile fashion. Timeout was performed. Local anesthetic was infiltrated just above the umbilicus and 11-blade scalpel was used to make a skin incision. Cautery was used to dissect down to the fascia and scored. Kochers were used to grasp and elevate it and the abdomen was then entered. A 0 Vicryl was placed in a [id number] fashion for closure at the end of the case. The balloon trocar was inserted into the abdomen and pneumoperitoneum was achieved. Under direct visualization of the laparoscope, a 5 mm trocar was placed in the suprapubic region and a 5 mm trocar was placed in the left lower quadrant. Appendix was located, Inflamed appendix in retrocecal position. Adhesions had to be taken down and the cecum was able to be rotated towards midline exposing the base of the appendix The base of the appendix was dissected around. Once at the base an Endo-CORINA 2.5 stapler was then fired across the base of the appendix. The mesoappendix was then divided. It was then placed in an Endobag and removed through the 12 mm trocar site. The abdomen was then irrigated and suctioned. No other pathology noted. The abdomen was then desufflated and the trocars were removed. The 0 Vicryl placed at the beginning of the case was then tied closing the 12 mm fascial defect. The skin was then closed using 4-0 Monocryl in a subcuticular fashion. The abdomen was then washed and dried and Skin Affix was placed over the incisions. The patient tolerated the procedure well without any complications and was taken to the recovery room in stable condition. Anesthesia Type general Estimated Blood Loss Estimated blood loss (mL): minimal Specimens/Packing Specimens Removed appendix GIRISH COFFMAN DO Jul 30, 2020 08:22
[2020-07-30] MEDS ORDERED: HYDROcodone/APAP 5 MG/325 MG (LORTAB) TAB PO PRN (08:30)
--- NOTE | 2020-07-30 10:51 | Anesthesia-General Post-Op ---
General Patient Condition Mental Status/LOC: Same as Preop Cardiovascular: Satisfactory Nausea/Vomiting: Absent Respiratory: Satisfactory Pain: Controlled Complications: Absent Post Op Complications Complications None Follow Up Care/Instructions Patient Instructions None needed. Anesthesia/Patient Condition Patient Condition Patient was seen this morning after the procedure and he was doing well, no complaints, stable vital signs, no apparent adverse anesthesia problems. He did have a small hive proximal to his IV site, most likely after the meperidine was given for post-op shivering. No signs of distress or complaints from patient. SAIDA CAVAZOS DO Jul 30, 2020 10:51
== END 2020-07-30 11:39 | disposition home or self-care (01) ==
LOC: EDUNIT# 21:18 → ER 21:20 → SDC 21:21 → 4TH 21:21 → UNDOADMOB 07-30 00:05 → UNDODISOB 07-30 11:39 → SDC 07-30 11:39
PROVIDERS: ATTEND Surgery
DX: K35.80 Unspecified acute appendicitis (principal); K21.9 Gastro-esophageal reflux disease without esophagitis; Z79.899 Other long term (current) drug therapy; Z88.5 Allergy status to narcotic agent; Z87.891 Personal history of nicotine dependence
CPT/HCPCS: 36415; 74177; 80053; 80306; 81000; 82150; 83690; 85007; 85025; 85027; 87081; 88304; 94760; 96361; 96374

== ENCOUNTER 2020-11-21 17:05 | Emergency (ER) | payer BC ==
[~2020-11-21] VITALS: Ht 180 cm; Wt 89.0 kg
[~2020-11-21 17:05] MED LIST changes: +ACHD5005 PO; +DOCU-143 PO
[2020-11-21 17:30] LABS: BILIRUBIN,URINE NEGATIVE (NEGATIVE); CLARITY,URINE CLEAR; COLOR,URINE YELLOW; GLUCOSE, URINE (UA) NEGATIVE (NEGATIVE); KETONES,URINE NEGATIVE (NEGATIVE); LEUKOCYTE ESTERASE ,URINE NEGATIVE (NEGATIVE); NITRITE,URINE NEGATIVE (NEGATIVE); PH,URINE 6.5 (5-9); PROTEIN,URINE NEGATIVE (NEGATIVE)
[2020-11-21 17:41] LABS: BACTERIA,URINE NEGATIVE /HPF; SQUAMOUS EPITHELIAL CELL,UR RARE /HPF
--- NOTE | 2020-11-21 17:41 | ED GU-Female ---
General Chief Complaint: - Urinary Stated Complaint: R TESTICLE PAIN Nursing Triage Note: THE PT IS AMBULATORY TO THE ROOM WITHOUT DIFFICULTY. NO DISTRESS IS SEEN ON ARRIVAL. LOC IS NORMAL FOR THE PT. THE PT C/O OF TESTICAL PAIN. Source: patient Exam Limitations: no limitations (RANDY SHELBY APRN) History of Present Illness Date Seen by Provider: Nov 21, 2020 Time Seen by Provider: 17:39 Initial Comments To ER with right testicular pain intermittently for the past few weeks today's episode is much worse. Had a vasectomy about a year ago with Dr. Ocampo. He is sexually active. Timing/Duration: just prior to arrival, getting worse, intermittent Severity/Quality: moderate Location: groin Radiation: none Activities at Onset: none Prior Genitourinary Problems: none (RANDY SHELBY APRN) Allergies and Home Medications Allergies Coded Allergies: meperidine (Unverified Allergy, Intermediate, HIVES, 07/30/20) Home Medications Docusate Sodium 100 Mg Capsule, 100 MG PO BID Prescribed by: GIRISH COFFMAN on 07/30/20 0817 Hydrocodone/Acetaminophen 1 Each Tablet, 1 EACH PO Q4H PRN for PAIN-MODERATE (5- 7) Prescribed by: GIRISH COFFMAN on 07/30/20 0817 Sulfamethoxazole/Trimethoprim 1 Each Tablet, 1 EACH PO BID Prescribed by: RANDY SHELBY on 11/21/20 967 Patient Home Medication List Home Medication List Reviewed: Yes (RANDY SHELBY APRN) Review of Systems Review of Systems Constitutional: see HPI; No chills, No fever EENTM: see HPI Respiratory: no symptoms reported Cardiovascular: no symptoms reported Genitourinary: see HPI; denies burning, denies discharge, denies dysuria, denies frequency Musculoskeletal: no symptoms reported Skin: no symptoms reported Psychiatric/Neurological: No Symptoms Reported Endocrine: No Symptoms Reported (RANDY SHELBY APRN) Past Ahtecst-Qgqcsh-Hudbiz Hx Past Medical History Surgeries: Yes (L KNEE ARTHOSCOPY, L INGUINAL HERNIA REPAIR) Abdominal, Orthopedic, Vasectomy Respiratory: No Currently Using CPAP: No Currently Using BIPAP: No Cardiac: No Neurological: No Reproductive Disorders: No Sexually Transmitted Disease: No HIV/AIDS: No Genitourinary: No Gastrointestinal: Yes (INGUINAL HERNIA REPAIR) Gastroesophageal Reflux Musculoskeletal: Yes (KNEE SCOPE) Endocrine: No HEENT: No Cancer: No Psychosocial: No Integumentary: No Blood Disorders: No (RANDY SHELBY APRN) Family Medical History No Pertinent Family Hx, Heart Disease, Other Conditions/Hx (RANDY SHELBY APRN) Physical Exam Vital Signs Vital Signs - First Documented 11/21/20 17:14 Temp 36.5 Pulse 60 Resp 16 B/P (MAP) 145/99 (114) Pulse Ox 99 (FREDY DEMARCO MD) Vital Signs Capillary Refill : Less Than 3 Seconds (RANDY SHELBY APRN) Height, Weight, BMI Height: 6'" Weight: 190lbs. oz. [id number]; 27.00 BMI Method:Stated General Appearance: WD/WN, no apparent distress HEENT: PERRL/EOMI, normal ENT inspection Respiratory: no respiratory distress, no accessory muscle use Gastrointestinal: normal bowel sounds, non tender Genital/Rectal: tenderness (Right spermatic cord tender to palpation), other (no lesions) Extremities: normal range of motion, non-tender Neurologic/Psychiatric: alert, normal mood/affect, oriented x 3 Skin: normal color, warm/dry (RANDY SHELBY APRN) Progress/Results/Core Measures Suspected Sepsis SIRS Temperature: Pulse: 60 Respiratory Rate: 16 Blood Pressure 145 /99 Mean: 114 (RANDY SHELBY APRN) Results/Orders Lab Results Laboratory Tests Test 11/21/20 17:20 Range/Units Urine Color YELLOW Urine Clarity CLEAR Urine pH 6.5 5-9 Urine Specific Butler 1.025 H 1.016-1.022 Urine Protein NEGATIVE NEGATIVE Urine Glucose (UA) NEGATIVE NEGATIVE Urine Ketones NEGATIVE NEGATIVE Urine Nitrite NEGATIVE NEGATIVE Urine Bilirubin NEGATIVE NEGATIVE Urine Urobilinogen 0.2 < = 1.0 MG/DL Urine Leukocyte Esterase NEGATIVE NEGATIVE Urine RBC (Auto) NEGATIVE NEGATIVE Urine RBC NONE /HPF Urine WBC NONE /HPF Urine Squamous Epithelial Cells RARE /HPF Urine Crystals NONE /LPF Urine Bacteria NEGATIVE /HPF Urine Casts NONE /LPF Urine Mucus NEGATIVE /LPF Urine Culture Indicated NO (FREDY DEMARCO MD) Vital Signs/I&O Capillary Refill : Less Than 3 Seconds (RANDY SHELBY APRN) Blood Pressure Mean: 114 Departure Impression Primary Impression: Epididymitis Disposition: 01 HOME, SELF-CARE Condition: Stable Departure-Patient Inst. Decision time for Depature: 18:50 (RANDY SHELBY APRN) Referrals: NO,LOCAL PHYSICIAN (PCP/Family) Primary Care Physician Patient Instructions: Epididymitis Add. Discharge Instructions: 1. Antibiotics as directed 2. Tylenol and ibuprofen as directed in addition to the prescribed pain medication. Off work tomorrow. Can go back Thursday. Wear underwear that elevate or lift up the scrotum. If you are sitting on the couch roll of a towel beneath the scrotum to elevated. Apply ice pack to the area several times a day for the next few days until the pain subsides. All discharge instructions reviewed with patient and/or family. Voiced understanding. Scripts Sulfamethoxazole/Trimethoprim (Bactrim Ds Tablet) 1 Each Tablet 1 EACH PO BID, #14 TAB Prov: RANDY SHELBY APRN 11/21/20 Work/School Note: Work Release Form Date Seen in the Emergency Department: Nov 21, 2020 Return to Work: Nov 23, 2020 ATTENDING PHYSICIAN NOTE: I was physically present as attending physician in the emergency department during the care of this patient, but I was not directly involved in the decision making or delivery of care for this patient. (FREDY DEMARCO MD) RANDY SHELBY APRN Nov 21, 2020 17:41 FREDY DEMARCO MD Nov 22, 2020 07:20
[2020-11-21] MEDS ORDERED: HYDROcodone/APAP 5 MG/325 MG (LORTAB) TAB PO ONE (17:45)
[2020-11-21] MEDS ORDERED: SULF1TAB38 PO (18:52)
[2020-11-21] MEDS ORDERED: AZITHROMYCIN 250 MG TAB (ZITHROMAX) PO SCH (19:00)
[2020-11-21] MEDS ORDERED: cefTRIAXone 1,000 MG VIAL IM ONE (19:00)
[2020-11-21] MEDS ORDERED: LIDOCAINE 1% INJ 20 ML 20 ML VIAL INJ ONE (19:00)
[2020-11-21 19:13] VITALS: BP 145/90
--- NOTE | 2020-11-21 19:15 | Diagnostic Imaging Report ---
EXAM: TESTICULAR/SCROTUM ULTRASOUND DATE: November 21, 2020. COMPARISON: January 05, 2007. INDICATION: 30-year-old male, right testicular pain. PROCEDURE: Two-dimensional grayscale , spectral Doppler and color Doppler ultrasound examination of the testes is performed. FINDINGS: Right testicle. The right testicle has normal contour and is without mass. There is normal blood flow to the right testicle. The right testicle measures 4.8 cm x 2.5 cm x 3.0 cm. Left testicle: The left testicle has normal contour and is without mass. There is normal blood flow to the left testicle. The left testicle measures 4.9 cm x 2.1 cm x 3.3 cm. The right and left epididymis are within normal limits. IMPRESSION: 1. No evidence of orchitis or epididymitis. 2. No evidence of testicular torsion. 3. No intratesticular or extratesticular mass. 4. Unremarkable testicular ultrasound. Dictated by: Dictated on workstation # [id number]
== END 2020-11-21 19:15 | disposition home or self-care (01) ==
LOC: EDUNIT# 17:05 → ER 17:07
DX: N45.1 Epididymitis (principal); Z98.52 Vasectomy status; Z88.5 Allergy status to narcotic agent
CPT/HCPCS: 76870; 81000